=== PATIENT | male | born 1985 | race Caucasian/White ===

== ENCOUNTER 2021-01-28 08:52 | Emergency (ER) | payer SELFPAY ==
[~2021-01-28] VITALS: Ht 170.2 cm; Wt 104.5 kg
[2021-01-28 08:56] VITALS: BP 197/112
[2021-01-28 09:44] LABS: APPEARANCE,URINE CLEAR (CLEAR); BILIRUBIN,URINE NEGATIVE (NEGATIVE); BLOOD, URINE NEGATIVE (NEGATIVE); COLOR,URINE YELLOW (YELLOW); LEUKOCYTE ESTERASE ,URINE NEGATIVE (NEGATIVE); NITRITE, URINE NEGATIVE (NEGATIVE); PH,URINE 5.5 (5.0-9.0); UGLUCOSE 3+ (NEGATIVE)
[2021-01-28 09:56] LABS: RBC,URINE NONE SEEN /HPF (0-5)
[2021-01-28 09:57] LABS: WBC,URINE 0-5 /HPF (0-5)
[2021-01-28 10:34] LABS: BASOPHILS # (AUTO) 0.1 K/uL (0.00-0.22); BASOPHILS % (AUTO) 0.9 % (0.0-2.0); EOSINOPHILS # (AUTO) 0.1 K/uL (0-0.4); EOSINOPHILS % (AUTO) 0.9 % (0.0-4.0); HEMATOCRIT 41.2 % (36-52); HEMOGLOBIN 15.4 g/dL (12.0-18.0); LYMPHOCYTES # (AUTO) 1.9 K/uL (2.0-11.5); LYMPHOCYTES % (AUTO) 33.6 % (20.5-51.1); MEAN CORPUSCULAR HEMOGLOBIN 31 pg (27-31); MEAN CORPUSCULAR HGB CONC 37 g/dL (33-37); MEAN CORPUSCULAR VOLUME 82.9 fL (80-94); MONOCYTES # (AUTO) 0.4 K/uL (0.8-1.0); MONOCYTES % (AUTO) 6.4 % (1.7-9.3); NEUTROPHILS # (AUTO) 3.4 K/uL (1.8-7.7); NEUTROPHILS % (AUTO) 58.2 % (42.2-75.2); PLATELET COUNT (AUTO) 249 K/uL (140-450); RED BLOOD CELL COUNT(AUTO) 4.97 MIL/uL (4.20-6.10); RED CELL DISTRIBUTION WIDTH 12.7 % (11.6-13.7); WHITE BLOOD COUNT (AUTO) 5.8 K/uL (4.8-10.8)
[2021-01-28 10:37] LABS: ALBUMIN 3.9 g/dL (3.4-5.0); ANION GAP 19.6 (8-16); CARBON DIOXIDE 21.4 mmol/L (21-32); CREATININE 0.9 mg/dL (0.6-1.3)
[2021-01-28] MEDS ORDERED: LISI20TA29 PO (11:13)
[2021-01-28] MEDS ORDERED: METF-988 PO (11:13)
[2021-01-28] MEDS ORDERED: CLOT1CRE83 TP (11:13)
[2021-01-28] MEDS ORDERED: BLOO1EAC40 MC (11:24)
[2021-01-28] MEDS ORDERED: LANC1COM6 MC (11:24)
[2021-01-28 11:42] VITALS: BP 154/85
== END 2021-01-28 11:40 | disposition home or self-care (01) ==
LOC: MED 08:52
DX: E11.9 Type 2 diabetes mellitus without complications (principal); I10 Essential (primary) hypertension; B37.42 Candidal balanitis; Z79.899 Other long term (current) drug therapy
CPT/HCPCS: 36415; 80053; 81001; 83690; 85025; 87086; 87491; 99283